=== PATIENT | female | born 1990 | race Caucasian/White ===

== ENCOUNTER 2017-03-13 18:14 | Outpatient (CLI) | payer OTHER ==
[2017-03-13 19:25] LABS: RUPTURE FETAL MEMBRANES NEGATIVE (NEGATIVE)
== END 2017-03-13 20:16 | disposition home or self-care (01) ==
LOC: OBT 18:14 → L-D 18:16 → OBT 20:16
DX: O47.1 False labor at or after 37 completed weeks of gestation (principal); O42.90 Premature rupture of membranes, unspecified as to length of time between rupture and onset of labor, unspecified weeks of gestation; Z3A.37 37 weeks gestation of pregnancy
CPT/HCPCS: 76818; 84112

== ENCOUNTER 2017-03-16 04:35 | Inpatient (IN) | payer OTHER ==
[2017-03-16 08:30] LABS: ADD UMIC YES; UR ASCORBIC ACID NEGATIVE (NEGATIVE); UR BILIRUBIN (Dip) NEGATIVE (NEGATIVE); UR BLOOD (Dip) 2+ mg/dL (NEGATIVE); UR CLARITY CLEAR (CLEAR); UR COLOR YELLOW (YELLOW); UR GLUCOSE (Dip) NEGATIVE (NEGATIVE); UR KETONES (Dip) NEGATIVE (NEGATIVE); UR LEUKOCYTE ESTERASE (Dip) NEGATIVE Leu/ul (NEGATIVE); UR NITRITE (Dip) NEGATIVE (NEGATIVE); UR RBC 1 /HPF (0-5); UR SPECIFIC GRAVITY (Dip) 1.011 (1.003-1.030); UR SQUAMOUS EPITHELIAL CELL FEW /HPF (FEW); UR TOTAL PROTEIN (Dip) NEGATIVE (NEGATIVE); UR UROBILINOGEN (Dip) NEGATIVE (NEGATIVE); UR WBC 0 /HPF (0-5)
[2017-03-16] MEDS ORDERED: MISOPROSTOL 200 MCG TAB PR (08:30)
[2017-03-16] MEDS ORDERED: BUTORPHANOL 2 MG INJ IV (08:30)
[2017-03-16] MEDS ORDERED: LIDOCAINE 1% (MPF) 30 ML INJ INJ (08:30)
[2017-03-16] MEDS ORDERED: CARBOPROST 250 MCG INJ IM (08:30)
[2017-03-16] MEDS ORDERED: OXYTOCIN 30 UNITS/LR 500 ML IV ×2 (08:30→09:30)
[2017-03-16] MEDS ORDERED: METHYLERGONOVINE 0.2 MG INJ IM (08:30)
[2017-03-16 08:48] LABS: RUPTURE FETAL MEMBRANES NEGATIVE (NEGATIVE)
[2017-03-16] MEDS ORDERED: LACTATED RINGER'S 1,000 ML IV (09:02)
[2017-03-16] MEDS ORDERED: OXYCODONE/ACETAMINOPHEN (5/325) TAB PO (09:30)
[2017-03-16] MEDS ORDERED: IBUPROFEN 600 MG TAB PO (09:30)
[2017-03-16] MEDS: LACTATED RINGER'S 1,000 ML IV ×3 (09:36→17:13)
[2017-03-16 09:49] LABS: ADD MAN DIFF? NO
[2017-03-16 09:52] LABS: BASOPHILS % 0.2 % (0.0-2.0); EOSINOPHILS # 0.1 10^3/ul (0.0-0.5); EOSINOPHILS % 1.5 % (0.0-7.0); HEMATOCRIT 32.7 % (37.0-47.0); HEMOGLOBIN 11.2 g/dl (12.0-16.0); LYMPHOCYTES % 17.4 % (15.0-51.0); MEAN CORPUSCULAR HEMOGLOBIN 29.6 pg (29.0-33.0); MEAN CORPUSCULAR HGB CONC 34.3 g/dl (32.0-37.0); MEAN CORPUSCULAR VOLUME 86.3 fl (82.0-101.0); MEAN PLATELET VOLUME 10.1 fl (7.4-10.4); MONOCYTE # 0.6 10^3/ul (0.3-0.9); MONOCYTES % 9.2 % (0.0-11.0); NEUTROPHIL # 4.2 10^3/ul (1.6-7.5); NEUTROPHILS % 70.2 % (39.0-77.0); PLATELET COUNT 169 10^3/UL (140-415); RED BLOOD COUNT 3.79 10^6/ul (4.20-5.40); RED CELL DISTRIBUTION WIDTH 13.2 % (11.5-14.5)
[2017-03-16] MEDS: AMPICILLIN 2 GM/NS (PMX) 100 ML IV (09:54)
[2017-03-16 10:11] LABS: INR 0.94; PROTIME 12.7 Sec (11.9-14.9)
[2017-03-16 10:12] LABS: PARTIAL THROMBOPLASTIN TIME 28.6 Sec (25.0-35.0)
[2017-03-16 11:03] LABS: HEPATITIS B SURFACE ANTIGEN NEGATIVE (NEGATIVE)
[2017-03-16] MEDS: BUTORPHANOL 2 MG INJ IV ×2 (11:14→13:18)
[2017-03-16] MEDS: AMPICILLIN 1 GM/NS (PMX) 50 ML IV (13:58)
[2017-03-16] MEDS ORDERED: FENTAnyl 2MCG/ML-ROPIV 0.2% 100 ML (15:06)
[2017-03-16] MEDS ORDERED: NALOXONE (0.4 MG/ML) INJ IV (15:30)
[2017-03-16] MEDS ORDERED: FENTAnyl 2MCG/ML-ROPIV 0.2% 100 ML BAG EPI (15:30)
[2017-03-16] MEDS ORDERED: DIPHENHYDRAMINE 50 MG INJ IV (15:30)
[2017-03-16] MEDS: OXYTOCIN 30 UNITS/LR 500 ML IV ×3 (16:49→20:50)
[2017-03-16] MEDS: ONDANSETRON 4 MG INJ IV (17:13)
[2017-03-16 19:07] LABS: RAPID PLASMA REAGIN NONREACTIVE (NR)
[2017-03-16] MEDS ORDERED: ONDANSETRON 4 MG INJ IV (21:00)
[2017-03-16] MEDS ORDERED: OXYCODONE/ASPIRIN (4.88/325) TAB PO (21:00)
[2017-03-16] MEDS ORDERED: DIBUCAINE 1% 30 GM OINT PR (21:00)
[2017-03-16] MEDS ORDERED: ACETAMINOPHEN 325 MG TAB PO (21:00)
[2017-03-16] MEDS: IBUPROFEN 600 MG TAB PO (21:00)
[2017-03-16] MEDS: OXYCODONE/ASPIRIN (4.88/325) TAB PO (21:31)
[2017-03-16] MEDS: WITCH HAZEL/GLYCERIN PAD PR (21:32)
[2017-03-16] MEDS: LANOLIN 7 GM TUBE TOP (21:32)
[2017-03-16] MEDS: SENNA/DOCUSATE NA (8.6MG/50MG) TAB PO (21:32)
[2017-03-16] MEDS: BENZOCAINE 20% 56 ML SPRAY TOP (21:32)
[2017-03-17] MEDS: IBUPROFEN 600 MG TAB PO ×4 (00:56→17:46)
[2017-03-17] MEDS: HYDROCODONE/APAP (5/325) TAB PO ×4 (04:07→21:39)
[2017-03-17] MEDS: SENNA/DOCUSATE NA (8.6MG/50MG) TAB PO ×2 (09:51→21:35)
[2017-03-17 11:07] LABS: ADD MAN DIFF? NO
[2017-03-17 11:13] LABS: BASOPHILS % 0.2 % (0.0-2.0); EOSINOPHILS # 0.1 10^3/ul (0.0-0.5); EOSINOPHILS % 0.8 % (0.0-7.0); HEMOGLOBIN 10.1 g/dl (12.0-16.0); LYMPHOCYTES # 1.6 10^3/ul (0.8-2.9); LYMPHOCYTES % 17.1 % (15.0-51.0); MEAN CORPUSCULAR HEMOGLOBIN 29.5 pg (29.0-33.0); MEAN CORPUSCULAR HGB CONC 33.7 g/dl (32.0-37.0); MEAN CORPUSCULAR VOLUME 87.7 fl (82.0-101.0); MEAN PLATELET VOLUME 10.2 fl (7.4-10.4); MONOCYTE # 0.9 10^3/ul (0.3-0.9); MONOCYTES % 10.2 % (0.0-11.0); NEUTROPHIL # 6.5 10^3/ul (1.6-7.5); NEUTROPHILS % 70.6 % (39.0-77.0); PLATELET COUNT 159 10^3/UL (140-415); RED BLOOD COUNT 3.42 10^6/ul (4.20-5.40); RED CELL DISTRIBUTION WIDTH 13.4 % (11.5-14.5)
[2017-03-17 11:13] LABS: WHITE BLOOD COUNT 9.3 10^3/ul (4.8-10.8)
[2017-03-17] MEDS: INFLUENZA VIRUS VACCINE 0.5 ML SYG IM* (14:34)
[2017-03-17] MEDS: WITCH HAZEL/GLYCERIN PAD PR (14:35)
[2017-03-18] MEDS: IBUPROFEN 600 MG TAB PO ×4 (05:42→18:20)
[2017-03-18] MEDS: SENNA/DOCUSATE NA (8.6MG/50MG) TAB PO (08:09)
[2017-03-18] MEDS: HYDROCODONE/APAP (5/325) TAB PO (08:10)
[2017-03-18] MEDS ORDERED: INFLUENZA VIRUS VACCINE 0.5 ML SYG IM* (09:00)
[2017-03-18] MEDS: MEASLES,MUMPS,RUBELLA VACCINE INJ SC* (10:44)
[2017-03-18] MEDS: DIPHTH/TET/ACEL PERTUSS (ADULT) 0.5 ML VIAL IM* (14:29)
== END 2017-03-18 18:39 | disposition home or self-care (01) | DRG 775 ==
LOC: OBT 04:35 → L-D 04:36 → OBT 08:21 → L-D 08:15 → PP1 20:37
PROVIDERS: Obstetrics & Gynecology
PROC: 10E0XZZ Delivery of Products of Conception, External Approach (ICD-10-PCS; principal; 2017-03-16)
PROC: 3E033VJ Introduction of Other Hormone into Peripheral Vein, Percutaneous Approach (ICD-10-PCS; 2017-03-16)
PROC: 0UQMXZZ Repair Vulva, External Approach (ICD-10-PCS; 2017-03-16)
DX: O70.0 First degree perineal laceration during delivery (principal); E66.01 Morbid (severe) obesity due to excess calories; O99.214 Obesity complicating childbirth; Z68.30 Body mass index [BMI] 30.0-30.9, adult; Z3A.38 38 weeks gestation of pregnancy; Z37.0 Single live birth
CPT/HCPCS: 62319; 76818; 81001; 84112; 85025; 85610; 85730; 86592; 86900; 86901; 87086; 87340; 90686; 90715

== ENCOUNTER 2018-04-07 20:55 | Inpatient (IN) | payer OTHER ==
[2018-04-07] MEDS ORDERED: HYDROCORTISONE 1% 28 GM CR TOP (22:30)
[2018-04-07] MEDS ORDERED: IBUPROFEN 600 MG TAB PO (22:30)
[2018-04-07] MEDS ORDERED: LIDOCAINE 1% (MPF) 30 ML INJ INJ (22:30)
[2018-04-07] MEDS ORDERED: MISOPROSTOL 200 MCG TAB PR (22:30)
[2018-04-07] MEDS ORDERED: CARBOPROST 250 MCG INJ IM (22:30)
[2018-04-07] MEDS ORDERED: OXYTOCIN 30 UNITS/LR 500 ML IV (22:30)
[2018-04-07 22:52] LABS: ADD MAN DIFF? NO
[2018-04-07 22:56] LABS: BASOPHILS % 0.4 % (0.0-2.0); EOSINOPHILS # 0.1 10^3/ul (0.0-0.5); EOSINOPHILS % 1.4 % (0.0-7.0); HEMATOCRIT 28.3 % (37.0-47.0); HEMOGLOBIN 9.1 g/dl (12.0-16.0); LYMPHOCYTES # 1.3 10^3/ul (0.8-2.9); LYMPHOCYTES % 25.3 % (15.0-51.0); MEAN CORPUSCULAR HEMOGLOBIN 26.4 pg (29.0-33.0); MEAN CORPUSCULAR HGB CONC 32.2 g/dl (32.0-37.0); MEAN PLATELET VOLUME 10.5 fl (7.4-10.4); MONOCYTE # 0.6 10^3/ul (0.3-0.9); MONOCYTES % 10.8 % (0.0-11.0); NEUTROPHIL # 3.1 10^3/ul (1.6-7.5); NEUTROPHILS % 60.5 % (39.0-77.0); NUCLEATED RED BLOOD CELLS% 0.6 /100WBC (0.0-0.0); PLATELET COUNT 165 10^3/UL (140-415); RED BLOOD COUNT 3.45 10^6/ul (4.20-5.40)
[2018-04-07 22:56] LABS: WHITE BLOOD COUNT 5.1 10^3/ul (4.8-10.8)
[2018-04-07 23:14] LABS: INR 0.89; PROTIME 12.1 Sec (11.9-14.9); PT RATIO 0.9
[2018-04-07] MEDS: LACTATED RINGER'S 1,000 ML IV (23:26)
[2018-04-07 23:46] LABS: HEPATITIS B SURFACE ANTIGEN NEGATIVE (NEGATIVE)
[2018-04-07] MEDS: AMPICILLIN 2 GM/NS (PMX) 100 ML IVPB (23:54)
[2018-04-08] MEDS: LACTATED RINGER'S 1,000 ML IV ×2 (04:02→10:23)
[2018-04-08] MEDS: AMPICILLIN 1 GM/NS (PMX) 50 ML IVPB ×4 (04:02→16:15)
[2018-04-08] MEDS: OXYTOCIN 30 UNITS/LR 500 ML IV ×4 (04:07→21:50)
[2018-04-08] MEDS ORDERED: DIPHENHYDRAMINE 50 MG INJ IM (07:00)
[2018-04-08] MEDS ORDERED: FENTAnyl 2MCG/ML-ROPIV 0.2% 100 ML (09:34)
[2018-04-08] MEDS ORDERED: NALOXONE (0.4 MG/ML) INJ IV (10:00)
[2018-04-08] MEDS: ACETAMINOPHEN 325 MG TAB PO (15:08)
[2018-04-08] MEDS: FENTAnyl 2MCG/ML-ROPIV 0.2% 100 ML BAG EPI (17:51)
[2018-04-08 18:49] LABS: RAPID PLASMA REAGIN NONREACTIVE (NR)
[2018-04-08] MEDS: METHYLERGONOVINE 0.2 MG INJ IM (19:54)
[2018-04-08] MEDS ORDERED: NACL 0.9% 3 ML SYG IV (20:00)
[2018-04-08] MEDS ORDERED: DIPHENHYDRAMINE 25 MG CAP PO (20:00)
[2018-04-08] MEDS ORDERED: CARBOPROST 250 MCG INJ IM (20:00)
[2018-04-08] MEDS ORDERED: METHYLERGONOVINE 0.2 MG INJ IM (20:00)
[2018-04-08] MEDS ORDERED: MISOPROSTOL 200 MCG TAB PR (20:00)
[2018-04-08] MEDS ORDERED: OXYTOCIN 30 UNITS/LR 500 ML IV (20:00)
[2018-04-08] MEDS ORDERED: ONDANSETRON 4 MG INJ IV (20:00)
[2018-04-08] MEDS: SENNA/DOCUSATE NA (8.6MG/50MG) TAB PO (21:00)
[2018-04-09] MEDS: LANOLIN HPA 1 PKT TOP (00:23)
[2018-04-09] MEDS: IBUPROFEN 600 MG TAB PO ×4 (00:23→18:00)
[2018-04-09] MEDS: BENZOCAINE 20% 56 ML SPRAY TOP (00:24)
[2018-04-09] MEDS: WITCH HAZEL/GLYCERIN PAD PR (00:24)
[2018-04-09] MEDS: OXYCODONE/ASPIRIN (4.88/325) TAB PO ×4 (04:28→21:25)
[2018-04-09] MEDS: SENNA/DOCUSATE NA (8.6MG/50MG) TAB PO ×2 (08:01→21:22)
[2018-04-09 08:21] LABS: ADD MAN DIFF? NO
[2018-04-09 08:31] LABS: BASOPHILS % 0.1 % (0.0-2.0); EOSINOPHILS % 0.6 % (0.0-7.0); HEMATOCRIT 29.6 % (37.0-47.0); HEMOGLOBIN 9.4 g/dl (12.0-16.0); LYMPHOCYTES # 1.3 10^3/ul (0.8-2.9); LYMPHOCYTES % 18.2 % (15.0-51.0); MEAN CORPUSCULAR HEMOGLOBIN 26.3 pg (29.0-33.0); MEAN CORPUSCULAR HGB CONC 31.8 g/dl (32.0-37.0); MEAN CORPUSCULAR VOLUME 82.9 fl (82.0-101.0); MEAN PLATELET VOLUME 11.1 fl (7.4-10.4); MONOCYTE # 0.7 10^3/ul (0.3-0.9); MONOCYTES % 10.6 % (0.0-11.0); NEUTROPHIL # 4.8 10^3/ul (1.6-7.5); NEUTROPHILS % 69.3 % (39.0-77.0); NUCLEATED RED BLOOD CELLS% 0.4 /100WBC (0.0-0.0); PLATELET COUNT 144 10^3/UL (140-415); RED BLOOD COUNT 3.57 10^6/ul (4.20-5.40); RED CELL DISTRIBUTION WIDTH 13.9 % (11.5-14.5)
[2018-04-09 08:31] LABS: WHITE BLOOD COUNT 6.9 10^3/ul (4.8-10.8)
[2018-04-10] MEDS: IBUPROFEN 600 MG TAB PO ×3 (00:25→11:40)
[2018-04-10] MEDS: OXYCODONE/ASPIRIN (4.88/325) TAB PO (06:37)
[2018-04-10] MEDS: SENNA/DOCUSATE NA (8.6MG/50MG) TAB PO (11:40)
[2018-04-10] MEDS: DIPHTH/TET/ACEL PERTUSS (ADULT) 0.5 ML VIAL IM* (11:41)
== END 2018-04-10 17:00 | disposition home or self-care (01) | DRG 807 ==
LOC: OBT 20:55 → L-D 21:02 → PP1 04-08 21:36 → OBT 22:00 → L-D 22:00
PROVIDERS: Obstetrics & Gynecology
PROC: 10E0XZZ Delivery of Products of Conception, External Approach (ICD-10-PCS; principal; 2018-04-08)
DX: O80 Encounter for full-term uncomplicated delivery (principal); Z37.0 Single live birth; O90.81 Anemia of the puerperium; Z3A.39 39 weeks gestation of pregnancy
CPT/HCPCS: 62319; 76815; 85025; 85610; 85730; 86592; 86850; 86900; 86901; 87340; 90715